=== PATIENT | male | born 1975 | race American Indian/Alaskan Native ===

== ENCOUNTER 2018-12-08 08:04 | Emergency (ER) | payer OTHER ==
[2018-12-08 08:11] VITALS: BP 148/90
--- NOTE | 2018-12-08 09:14 | Emergency Department Report ---
ED Laceration HPI - HPI Chief Complaint: Wound/Laceration Stated Complaint: LFT FINGER NEEDS STITCHS Time Seen by Provider: 12/08/18 08:39 Location: Upper Extremity Severity: mild Tetanus Status: Up to Date Laceration Symptoms: No Foreign Body Sensation, No Numbness, No Weakness, No Pain Other History: This is a 43-year-old male who presents to the ED with laceration that occurred last Thursday. Patient was seen at another facility on Thursday. Patient states that he had a tendon injury when he S apparently was at work and obtained a laceration using a saw. Patient states that he did not feel like his tendon was not sewn back together. And he is unable to extend his finger fully, left index finger ED Review of Systems ROS: Stated complaint: LFT FINGER NEEDS STITCHS Other details as noted in HPI Comment: All other systems reviewed and negative ED Past Medical Hx - Past Medical History Additional medical history: "eye problems" - Surgical History Past Surgical History?: No - Social History Smoking Status: Never Smoker Substance Use Type: None Laceration Physical Exam - Exam General: Vital signs noted. No distress. Alert and acting appropriately. Laceration Location: Upper Extremity (left index finger posterior) Laceration Exam: No Foreign Body, No Exposed Tendon, Vessel, or Nerve, No Tendon Injury, No Normal Distal CMS ED Course Vital Signs 12/08/18 08:09 Temperature 98.3 F Pulse Rate 58 L Respiratory 16 Rate Blood Pressure 148/90 O2 Sat by Pulse 98 Oximetry ED Medical Decision Making - Medical Decision Making 43-year-old male presents with status post secondary to laceration repair. Wound looks moderately healing, 2 stitches were gone. 3 stitches present. Steri-Strips were applied to the laceration. Discussed the patient was to follow up with orthopedics for possible tendon repair. At this time I discussed the patient and I am unable to be suture his subcutaneous wound. Finger was nontender, no swelling, no erythema. Follow-up orthopedic doctor as discussed. Patient is in no acute distress. Critical care attestation.: If time is entered above; I have spent that time in minutes in the direct care of this critically ill patient, excluding procedure time. ED Disposition Clinical Impression: Laceration of index finger with tendon involvement Qualifiers: Encounter type: subsequent encounter Laterality: left Qualified Code(s): S61.211D - Laceration without foreign body of left index finger without damage to nail, subsequent encounter Disposition: DC-01 TO HOME OR SELFCARE Is pt being admited?: No Does the pt Need Aspirin: No Condition: Stable Instructions: Acute Wound Care (ED) Additional Instructions: Make sure to follow up with the [facility] doctor as discussed. Take all your medications as you've been prescribed. If you have any worsening symptoms or develop new symptoms please return to ED immediately. Referrals: REI QUIROGA MD [Primary Care Provider] - 3-5 Days MOI CULVER MD [Staff Physician] - 3-5 Days Forms: Accompanied Note, Work/School Release Form(ED) Time of Disposition: 09:17
== END 2018-12-08 09:21 | disposition home or self-care (01) ==
LOC: ED 08:04
DX: S61.211D Laceration without foreign body of left index finger without damage to nail, subsequent encounter (principal); X58.XXXD Exposure to other specified factors, subsequent encounter
CPT/HCPCS: 99282